=== PATIENT | female | born 1970 | race Caucasian/White ===

== ENCOUNTER 2017-11-18 19:50 | Emergency (ER) | payer OTHER ==
[~2017-11-18] VITALS: Ht 157.5 cm; Wt 47.2 kg
[2017-11-18] MEDS ORDERED: PATADAY2.5 ML OPHTHALMIC (21:26)
[2017-11-18 21:29] VITALS: BP 105/68
== END 2017-11-18 21:30 | disposition home or self-care (01) ==
LOC: ER 19:50
DX: H01.006 Unspecified blepharitis left eye, unspecified eyelid (principal); H01.003 Unspecified blepharitis right eye, unspecified eyelid; J45.909 Unspecified asthma, uncomplicated; Z91.040 Latex allergy status; Z88.1 Allergy status to other antibiotic agents; Z88.5 Allergy status to narcotic agent

== ENCOUNTER 2018-03-03 19:02 | Emergency (ER) | payer BC, OTHER ==
[~2018-03-03] VITALS: Ht 160 cm; Wt 47.2 kg
[~2018-03-03 19:02] MED LIST: PATADAY2.5 ML OPHTHALMIC
[2018-03-03] MEDS ORDERED: PREDNISONE 10 M10 MG PO (19:19)
[2018-03-03] MEDS ORDERED: [UNRECOGNIZED DRUG - OTHER] INH (19:20)
[2018-03-03] MEDS ORDERED: ALBUTEROL2.5 MG/0.1 INH (19:21)
[2018-03-03] MEDS ORDERED: SINGULAIR 10 MG10 M1 PO (19:22)
[2018-03-03] MEDS ORDERED: PROAIR HFA8.5 GM INH (19:22)
[2018-03-03 20:04] LABS: HEMATOCRIT 41.2 % (37.0-47.0); HEMOGLOBIN 14.3 gm/dL (12.0-15.0); MCH 31.2 pg (26.0-34.0); MCHC 34.7 g/dL (28.0-37.0); MCV 89.8 fL (80.0-100.0); RBC 4.59 mil/uL (4.20-5.00); RDW 12.6 % (10.5-14.5); WBC 5.6 thou/uL (4.0-11.0)
[2018-03-03 20:09] LABS: ANION GAP 9 mmol/L (7-16); BUN 11 mg/dL (7-18); CALCIUM 8.9 mg/dL (8.5-10.1); CHLORIDE 103 mmol/L (98-107); CO2 25 mmol/L (21-32); CREATININE 0.7 mg/dL (0.6-1.0); GLUCOSE 105 mg/dL (74-106); POTASSIUM 4.1 mmol/L (3.5-5.1); SODIUM 137 mmol/L (136-145)
[2018-03-03 20:15] LABS: ALBUMIN 3.9 g/dL (3.4-5.0); DIRECT BILIRUBIN < 0.1 mg/dL (<0.1-0.3); SGOT 18 U/L (15-37); SGPT 21 U/L (30-65); TOTAL BILIRUBIN 0.4 mg/dL (<0.1-1.0)
[2018-03-03 20:29] LABS: TOTAL PROTEIN 7.4 g/dL (6.4-8.2)
[2018-03-03 21:52] VITALS: BP 119/65
== END 2018-03-03 21:54 | disposition home or self-care (01) ==
LOC: ER 19:02
PROVIDERS: Emergency Medicine
DX: J45.909 Unspecified asthma, uncomplicated (principal); M79.89 Other specified soft tissue disorders; Z88.1 Allergy status to other antibiotic agents; Z88.5 Allergy status to narcotic agent; Z91.040 Latex allergy status

== ENCOUNTER 2019-04-09 21:34 | Emergency (ER) | payer OTHER ==
[~2019-04-09] VITALS: Ht 160 cm; Wt 59.0 kg
[~2019-04-09 21:34] MED LIST changes: +ALBUTEROL2.5 MG/0.1 INH; +PREDNISONE 10 M10 MG PO; +PROAIR HFA8.5 GM INH; +SINGULAIR 10 MG10 M1 PO; +[UNRECOGNIZED DRUG - OTHER] INH
[2019-04-09 22:16] LABS: URINE BILIRUBIN NEGATIVE (Negative); URINE BLOOD NEGATIVE (Negative); URINE CLARITY CLEAR; URINE COLOR YELLOW; URINE GLUCOSE-RANDOM* NEGATIVE (Negative); URINE KETONES NEGATIVE (Negative); URINE LEUKOCYTES-REFLEX NEGATIVE (Negative); URINE NITRITE-REFLEX NEGATIVE (Negative); URINE PROTEIN (DIPSTICK) NEGATIVE (Negative); URINE SPECIFIC GRAVITY 1.025 (1.005-1.035); URINE UROBILINOGEN 0.2 E.U./dl (0.2-1.0)
[2019-04-10] MEDS ORDERED: PREDNISONE50 MG PO (00:22)
[2019-04-10] MEDS ORDERED: PROAIR RESPICL90 MCG INH (00:24)
[2019-04-10 00:38] VITALS: BP 111/82
== END 2019-04-10 00:38 | disposition home or self-care (01) ==
LOC: ER 21:34
PROVIDERS: Emergency Medicine
DX: R21 Rash and other nonspecific skin eruption (principal); T36.8X5A Adverse effect of other systemic antibiotics, initial encounter; J45.909 Unspecified asthma, uncomplicated; Z91.040 Latex allergy status; Z88.1 Allergy status to other antibiotic agents; Z88.5 Allergy status to narcotic agent; Y92.89 Other specified places as the place of occurrence of the external cause